=== PATIENT | male | born 1940 | race Caucasian/White ===

== ENCOUNTER 2020-01-06 11:17 | Day surgery (SDC) | payer MEDICARE, OTHER ==
[~2020-01-06] VITALS: Ht 172.7 cm; Wt 89.0 kg
[2020-01-06 11:47] LABS: Hematocrit 42.6 % (37.0-53.0); Hemoglobin 14.2 g/dL (13.5-17.5); Mean Corpuscular HGB 30.3 pg (26.0-34.0); Mean Corpuscular HGB Conc 33.3 g/dL (31.5-36.5); Mean Corpuscular Volume 91 fL (80-100); Platelet Count 240 K/mm3 (150-400); RDW Coefficient Variation 12.9 % (11.7-14.2); RDW Standard Deviation 42.7 fL (35.1-46.3); Red Blood Cell Count 4.69 M/mm3 (4.30-5.90); White Blood Cell Count 12.23 K/mm3 (4.00-11.30)
[2020-01-06] MEDS ORDERED: LISI5 PO (11:53)
[2020-01-06] MEDS ORDERED: Lovastatin20 MG PO (11:53)
[2020-01-06] MEDS ORDERED: TOLT2 PO (11:53)
[2020-01-06] MEDS ORDERED: K2 PLUS D3 TAB1 EACH PO (11:54)
[2020-01-06 12:01] LABS: International Normalized Ratio 1.02; Prothrombin Time Results 10.9 Sec (9.7-11.5)
[2020-01-06 12:07] LABS: Bun/Creatinine Ratio 16.3 (12.0-20.0); Calcium, Blood 9.4 mg/dL (8.5-10.1); Creatinine, Blood 1.53 mg/dL (0.60-1.20); Potassium, Blood 4.3 mmol/L (3.5-5.5)
[2020-01-06 13:01] LABS: BAND PERCENT MAN 1 % (0-8); BASOPHILS PERCENT MAN 0 % (0-2); EOSINOPHILS PERCENT MAN 0 % (0-6); LYMPHOCYTES ABSOLUTE MAN 7.46 K/mm3 (0.84-5.20); LYMPHOCYTES PERCENT MAN 61 % (21-46); MONOCYTES ABSOLUTE MAN 0.24 K/mm3 (0.16-1.47); MONOCYTES PERCENT MAN 2 % (4-13); NEUTROPHILS ABSOLUTE MAN 4.52 K/mm3 (1.96-9.15); SEG NEUTROPHILS PERCENT MAN 36 % (41-73); TOTAL CELLS COUNTED 100
--- NOTE | 2020-01-06 17:05 | NUR ---
SBAR GIVEN TO ERENDIRA Rock RN. TO ASSUME CARE OF PT.
--- NOTE | 2020-01-06 18:56 | NUR ---
DISCHARDE PT DRESSED SELF WITH NO COMPLICATIONS. PT PRE REVIEWED DISCHARGE INSTRUCTIONS AND STATED HIS UNDERSTANDING OF DC AND SITE CARE MANAGEMENT INSTRUCTIONS. PT PLANS ON FOLLOWING UP WITH SURGEON TO REMOVE HIS BLADDER. PT PROVIDED WITH EXTRA DRAINAGE BAG. SITE IS CLEAN WITH DRESSING C/D/I. PT DENIES PAIN AT SITE. IV DCD WITH CATH IN TACT. VSS. PT TAKEN BY TO RIDE BY RN.
== END 2020-01-06 16:40 | disposition home or self-care (01) ==
LOC: MHTC 11:17 → EDSTATUS 11:41 → MHTC 11:42
PROVIDERS: Radiology Diagnostic Radiology
DX: C67.9 Malignant neoplasm of bladder, unspecified (principal); I10 Essential (primary) hypertension; E78.00 Pure hypercholesterolemia, unspecified; Z79.899 Other long term (current) drug therapy; E78.5 Hyperlipidemia, unspecified
CPT/HCPCS: 36415; 50432; 76937; 80048; 85025; 85610; 99152; 99153; C1729; C1769; J2250; J3010; J7030; Q9967